=== PATIENT | male | born 2005 | race Hispanic/Latino ===

== ENCOUNTER 2025-04-24 09:32 | Emergency (ER) | payer BC, OTHER ==
[2025-04-24 09:57] LABS: Bacteria/HPF None Seen HPF (None Seen); CAUTI Indications for Culture Dysuria,urgency,freq; Glucose, Urine (Dipstick) Normal (Negative); Leukocyte Negative Leu/uL (Negative); Protein, Urine (Dipstick) Negative (Neg-Trace); RBC/HPF 0-3 HPF (0-3); Specific Gravity, Urine 1.024 (1.002-1.036); WBC/HPF 0-3 HPF (0-3)
[2025-04-24 09:58] LABS: Urine Culture Reflex No No
[2025-04-24 11:31] LABS: #Basophils Less than 0.03 10x3/uL (0.0-0.2); #Eosinophils Less than 0.03 10x3/uL (0.0-0.7); #Monocytes 0.31 10x3/uL (0.11-0.59); #Neutrophils 2.56 10x3/uL (1.40-6.50); %Basophils 0.4 % (0.0-1.0); %Eosinophils 0.4 % (0.0-10.0); %Lymphocytes 36.9 % (28.0-48.0); %Monocytes 6.7 % (0.0-4.0); %Neutrophils 55.4 % (31.0-61.0); Hematocrit 45.4 % (42.0-52.0); Hemoglobin 15.6 g/dL (14.0-18.0); Mean Corpuscular Hemoglobin 29.8 pg (25.0-35.0); Mean Corpuscular Volume 86.8 fL (78.0-98.0); Platelet Count 235 10x3/uL (130-400); Red Blood Cell (RBC) Count 5.23 mill/uL (4.00-5.20); White Blood Cell (WBC) Count 4.63 10x3/uL (4.8-10.8)
[2025-04-24 12:00] LABS: ALT (SGPT) 16 U/L (Less than 45); AST (SGOT) 22 U/L (11-34); Albumin 4.7 g/dL (3.1-4.5); Alkaline Phosphatase 87 U/L (50-130); Anion Gap 11 mmol/L (10-20); BUN (Urea Nitrogen) 10 mg/dL (8.9-20.6); Bilirubin, Total 1.0 mg/dL (0.3-1.2); Calc. Creatinine Clearance 0 mL/min (70-130); Calcium 9.6 mg/dL (7.8-10.44); Carbon Dioxide 27 mmol/L (22-29); Chloride 106 mmol/L (98-107); Globulin 2.9 g/dL (2.4-3.5); Glucose 92 mg/dL (70-105); Lipase 21 U/L (8-78); Potassium 3.9 mmol/L (3.5-5.1); Sodium 140 mmol/L (136-145)
[2025-04-25 00:10] LABS: Chlam.trachomatis by PCR,Urine Not Detected (NotDetected); GC N.gonorrhoeae PCR,UrineVOID Not Detected (NotDetected)
== END 2025-04-24 11:40 | disposition home or self-care (01) ==
LOC: ERS 09:32
DX: I86.1 Scrotal varices (principal); R31.29 Other microscopic hematuria
CPT/HCPCS: 74176; 76870; 80053; 81001; 83690; 85025; 87491; 87591; 93976; 96374